=== PATIENT | female | born 1950 | race Asian ===

== ENCOUNTER 2021-04-24 19:12 | Emergency (ER) | payer OTHER ==
[2021-04-24 19:57] VITALS: TEMP 98.2; BMI 23.3
[2021-04-24] MEDS ORDERED: ACETAMINOPHEN 325 MG TABLET (FP) PO ONE (20:30)
[2021-04-24] MEDS ORDERED: ACETAMINOPHEN 325 MG TABLET (FP) ONE (20:40)
[2021-04-24 23:07] VITALS: PULSE 66
[2021-04-25 02:44] VITALS: BP 145/78
== END 2021-04-24 23:08 | disposition home or self-care (01) ==
LOC: JER 19:12
DX: S00.03XA Contusion of scalp, initial encounter (principal); W06.XXXA Fall from bed, initial encounter
CPT/HCPCS: 70450-TC; 72125-TC; 99284-25